=== PATIENT | female | born 2000 | race Caucasian/White ===

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

== ENCOUNTER 2022-11-19 02:55 | Inpatient (IN) ==
[2022-11-19] MEDS ORDERED: OXYTOCIN 30 UNITS/500 ML BAG IV PRN ×3 (03:37→13:28)
[2022-11-19] MEDS ORDERED: LIDOCAINE 1% LOCAL 20 ML VIAL INFIL PRN (03:37)
--- NOTE | 2022-11-19 03:41 | History & Physical Report ---
Date of Service November 19, 2022 Assessment & Plan (1) Supervision of normal first : (2) Group beta Strep positive: Plan 22 yo G1 at 40 2/7 wga admitted in labor VSS Fetus cat 1 Labor - augment PRN GBS+, pcn ordered desires epidural History of Present Illness Chief Complaint: contractions Primary Care Provider: Memo Wills MD 22 yo G1 at 40 2/7 wga presents w/ ctx increasing in freq and intesnity. +FM; denies LOF, VB PNI: BMI > 40 GBS+ Past [employer] Hx: G1 q30d cycles denies hx stis Allergies Allergy/AdvReac Type Severity Reaction Status Date / Time No Known Drug Allergies Allergy Verified 11/10/22 15:16 Home Medications Medication Instructions Recorded Confirmed Type albuterol sulfate 90 mcg/actuation 2 puffs inhalation Q4H PRN 04/29/20 11/19/22 Rx aerosol inhaler (ProAir HFA) shortness of breath or wheezing #18 grams prenat.vits,melissa,ubl-ymfc-dytor 1 tab PO DAILY 04/03/22 11/19/22 History ondansetron HCl 4 mg tablet 4 mg PO Q6H PRN nausea and 10/08/22 11/19/22 Rx vomiting #20 tabs Patient History Medical History Acne Asthma, mild intermittent Dysmenorrhea Varicella vaccination Surgical History No pertinent past surgical history Family History (Updated 04/03/22 @ 13:09 by Celine Ahn) Grandfather (Maternal) Breast cancer Father Hypertension Other No pertinent family history Denies family history of Ovarian cancer Colorectal cancer Social History (Updated 11/19/22 @ 03:33 by Gela Ortiz) Smoking Status: Never smoker Second Hand Exposure: No; Hx Alcohol Use: No Hx Substance Use: No Preferred Language: Bengali Communication Ability: Effective Hearing Ability: Normal Lpn Rn Required: No Beliefs That Will Affect Care: None marital status: marital status details: Noman Rodrigez (22) [phone] Current Living Situation: Spouse Current Living Situation Comment: lives with spouse, cats-spouse changing litter current occupational status: employed current occupation: [employer] Feels Safe at Home: Yes Safety Concerns: Feels Safe At This Time Childhood Exposure to Second-Hand Smoke: No Seatbelt Use: always Sunscreen Use: Yes Do you think of yourself as: straight/heterosexual Gender Identity: Female Physical Exam Genitourinary: Manual OB Exam: + cervical dilation (4-5), + cervical effacement 70% and + station -2 OB Exam Monitor Tracing: + external FHT monitor used, + external uterine monitor used (q5) and + category I (135/mod/+accel/-decel) Results & Data ([facility]) Vital Signs (Past 12 Hours) Vital Signs Temp Pulse Resp BP 11/19/22 03:14 18 11/19/22 03:14 97.7 F 18 11/19/22 03:15 78 125/77 Laboratory Results OB Labs: Blood Type A Negative 04/10/22 Antibody Screen NEGATIVE 09/08/22 Hemoglobin 10.6 g/dl (12.0-16.0) L 09/08/22 Hematocrit 31.3 % (34.1-44.9) L 09/08/22 Mean Corpuscular Volume 88.6 fL (80-100) 04/10/22 Platelet Count 301 K/uL (130-400) 04/10/22 Rubella IgG Antibody Immune (Immune) 04/10/22 Rapid Plasma Reagin Nonreactive (Nonreactive) 04/10/22 Hepatitis B Surface Antigen. NON-REACTIVE (NON-REACTIVE) 04/10/22 Hepatitis C Antibody (EIA) NON-REACTIVE (NON-REACTIVE) 04/10/22 HIV (1&2) Ag and Ab Confirmation NON-REACTIVE (NON-REACTIVE) 04/10/22 Glucose 1 Hour 50 gm Load 116 mg/dl (70-130) 09/08/22 OB Optional Labs: Chlamydia trachomatis RNA NOT DETECTED (NOT DETECTED) 04/20/22 Neisseria gonorrhoeae RNA NOT DETECTED (NOT DETECTED) 04/20/22 Labs Reviewed: cfdna-low risk--mln Declines msafp--mln GBS+ Coding Level of Care Code None Diagnoses Supervision of normal first Z34.00 Group beta Strep positive B95.1
[2022-11-19] MEDS ORDERED: PENICILLIN G POTASSIUM 6 MU in DEXTROSE 5% 250 ML IV STA (03:55)
[2022-11-19] MEDS: LACTATED RINGER'S 1,000 ML IV PRN ×2 (04:03→06:02)
[2022-11-19 04:12] LABS: Hematocrit (blood only) 32.6 % (34.1-44.9); Hemoglobin 11.7 g/dl (12.0-16.0); Mean Corpuscular Hemoglobin 32.8 pg (25.0-34.0); Mean Corpuscular Hgb Conc 35.9 g/dL (32.0-36.0); Mean Corpuscular Volume 91.3 fL (80.0-100.0); Mean Platelet Volume 9.8 fL (9.4-12.3); Platelet Count 203 K/uL (130-400); RDW Coefficient of Variation 12.9 % (11.5-14.5); RDW Standard Deviation 42.4 fL (36.4-46.3); Red Blood Count 3.57 M/uL (3.93-5.22); White Blood Count 16.43 K/ul (4.8-10.8)
[2022-11-19] MEDS ORDERED: ePHEDrine sulfate 50 MG/ML AMP ONE (04:15)
[2022-11-19] MEDS ORDERED: fentaNYL 2MCG/ML ROPIVACAINE 1.25MG/ML 100 ML BAG EPI ONE (04:16)
[2022-11-19] MEDS ORDERED: fentaNYL citrate 100 MCG/2 ML VIAL ONE (04:16)
[2022-11-19] MEDS ORDERED: BUPIVACAINE 0.25% 30 ML VIAL ONE (04:16)
[2022-11-19] MEDS ORDERED: LIDOCAINE 2%/EPINEPHRINE 1:200,000 20 ML SDV ONE (04:16)
[2022-11-19] MEDS ORDERED: SODIUM CHLORIDE 0.9% INJ 10 ML VIAL ONE (04:16)
[2022-11-19] MEDS ORDERED: diphenhydrAMINE 50 MG/ML VIAL IV PRN (04:21)
[2022-11-19] MEDS ORDERED: NALBUPHINE HCL INJ 10 MG/ML AMP IV PRN (04:21)
[2022-11-19] MEDS ORDERED: fentaNYL 2MCG/ML ROPIVACAINE 1.25MG/ML 100 ML BAG EPI PRN (04:21)
[2022-11-19] MEDS ORDERED: ePHEDrine sulfate 50 MG/ML AMP IV PRN (04:21)
[2022-11-19] MEDS ORDERED: ONDANSETRON INJ 2 MG/ML 2 ML VIAL IV PRN (04:21)
[2022-11-19] MEDS ORDERED: NALOXONE HCL 0.4 MG/1 ML VIAL/CARP IV PRN (04:21)
[2022-11-19] MEDS ORDERED: NALOXONE HCL 1 MG in SODIUM CHLORIDE 0.9% 1000ML 1,000 ML IV PRN (04:21)
--- NOTE | 2022-11-19 04:22 | Anesthesiology Consultation ---
Date of Service November 19, 2022 Assessment & Plan (1) Encounter for pre-operative examination: Chart Review Chart Review: Patient NOT seen in Pre Admission Testing and Acceptable Risk for Labor Epidural Consults Requested none History Height/Weight Height: 5 ft 2 in Weight: 97.522 kg Allergies Allergy/AdvReac Type Severity Reaction Status Date / Time No Known Drug Allergies Allergy Verified 11/10/22 15:16 Medications Home Medications Medication Instructions Recorded Confirmed Last Taken albuterol sulfate 90 mcg/actuation 2 puffs inhalation Q4H PRN 04/29/20 11/19/22 Unknown aerosol inhaler (ProAir HFA) shortness of breath or wheezing #18 grams prenat.vits,melissa,wqp-cetv-buqev 1 tab PO DAILY 04/03/22 11/19/22 11/19/22 01:00 ondansetron HCl 4 mg tablet 4 mg PO Q6H PRN nausea and 10/08/22 11/19/22 Unknown vomiting #20 tabs Active Medications Generic Name Dose Route Start Last Admin Trade Name Freq PRN Reason Stop Dose Admin Lactated Ringer's 1,000 mls @ 125 mls/hr 11/19/22 03:37 11/19/22 04:03 Lr IV 11/21/22 03:36 999 mls/hr .Q8H PRN Administration L&D Protocol Protocol Penicillin G Potassium 6 mu/ 262 mls @ 262 mls/hr 11/19/22 03:55 11/19/22 04:13 Dextrose IV 11/19/22 04:54 262 mls/hr NOW STA Administration Past Medical History Medical History Acne Asthma, mild intermittent Dysmenorrhea Varicella vaccination Exercise / Class Metabolic Activity II 4-5 Yardwork/Stairs/Walk up hill Past Family History Family History Grandfather (Maternal) Breast cancer Father Hypertension Other No pertinent family history Denies family history of Ovarian cancer Colorectal cancer Past Surgical History Surgical History No pertinent past surgical history Past Anesthesia History No Hx of Anesthesia Complications and No Family Hx of Anesthesia Complications History of PONV No Hx of PONV and No Hx of Motion Sickness Social History Smoking Status: Never smoker Hx Alcohol Use: No Hx Substance Use: No Physical Exam Vital Signs Last Vital Signs Temp 36.5 C 11/19/22 03:14 Pulse 94 H 11/19/22 04:21 Resp 18 11/19/22 03:14 BP 125/77 11/19/22 03:15 Pulse Ox 100 11/19/22 04:21 Testing Laboratory Results 11/19/22 04:00
[2022-11-19] MEDS: PENICILLIN G POTASSIUM 3 MU in DEXTROSE 5% 100 ML IV PRN ×2 (07:48→11:51)
--- NOTE | 2022-11-19 08:34 | Labor Progress Brief Note ---
Date of Service November 19, 2022 Subjective comfortable w/ epidural Assessment & Plan (1) Supervision of normal first : (2) Group beta Strep positive: Plan 22 yo G1 at 40 2/7 wga admitted in labor VSS Fetus cat 1 Labor - augment PRN, good progress noted GBS+, pcn ordered epidural in place Admission and Anticipated Discharge Date Admission Date: November 19, 2022 Physical Exam Genitourinary: Manual OB Exam: + cervical dilation 8 cm, + cervical effacement 90%, + station 0 and + amniotic fluid (had srom of fluid earlier, arom of forebag performed with mec noted) OB Exam Monitor Tracing: + external FHT monitor used, + external uterine monitor used (q5) and + category I (130/mod/+accel/-decel) Results & Data ([facility]) Vital Signs (Past 12 Hours) Vital Signs Temp Pulse Resp BP Pulse Ox 11/19/22 07:05 98.4 F 16 11/19/22 08:26 77 100 11/19/22 08:21 75 99 11/19/22 08:18 77 108/67 11/19/22 08:16 76 100 11/19/22 08:11 70 99 11/19/22 08:06 71 98 11/19/22 08:00 18 11/19/22 08:00 18 11/19/22 07:30 16 11/19/22 07:30 16 11/19/22 08:01 71 107/60 99 11/19/22 07:56 77 99 11/19/22 07:51 74 99 11/19/22 07:46 99 11/19/22 07:46 78 11/19/22 07:46 75 111/63 11/19/22 07:41 81 97 11/19/22 07:36 69 99 11/19/22 07:32 78 110/59 L 11/19/22 07:31 72 100 11/19/22 07:26 83 100 11/19/22 07:05 16 11/19/22 07:05 98.4 F 16 11/19/22 07:21 81 100 11/19/22 07:16 100 11/19/22 07:16 83 11/19/22 07:16 88 110/68 11/19/22 07:11 89 100 11/19/22 07:06 73 99 11/19/22 07:01 68 127/68 100 11/19/22 07:00 18 11/19/22 07:00 18 11/19/22 06:56 66 99 11/19/22 06:51 80 100 11/19/22 06:46 99 11/19/22 06:46 73 11/19/22 06:46 68 124/67 11/19/22 06:41 74 99 11/19/22 06:30 18 11/19/22 06:30 18 11/19/22 06:36 82 100 11/19/22 06:31 73 118/68 99 11/19/22 06:26 74 99 11/19/22 06:00 18 11/19/22 06:00 18 11/19/22 06:21 70 100 11/19/22 06:16 76 122/73 99 11/19/22 06:11 78 100 11/19/22 06:09 98 H 93 11/19/22 06:06 74 100 11/19/22 06:01 83 119/73 99 11/19/22 05:56 77 100 11/19/22 05:51 73 100 11/19/22 05:46 83 121/70 99 11/19/22 05:41 86 99 11/19/22 05:36 88 100 11/19/22 05:31 85 119/67 100 11/19/22 05:30 105 H 18 93 11/19/22 05:27 98.2 F 11/19/22 05:26 91 H 100 11/19/22 05:21 100 H 100 11/19/22 05:16 75 100 11/19/22 05:14 82 117/67 11/19/22 05:11 84 100 11/19/22 05:10 86 123/66 11/19/22 05:06 88 100 11/19/22 05:00 18 11/19/22 05:00 18 11/19/22 05:01 99 H 99 11/19/22 04:59 85 116/57 L 11/19/22 04:56 94 H 100 11/19/22 04:54 90 119/58 L 11/19/22 04:51 88 100 11/19/22 04:40 20 11/19/22 04:40 20 11/19/22 04:49 89 115/56 L 11/19/22 04:47 95 H 118/56 L 11/19/22 04:46 83 99 11/19/22 04:45 85 126/60 11/19/22 04:44 96 H 155/67 H 11/19/22 04:41 89 108/67 99 11/19/22 04:39 90 109/55 L 11/19/22 04:36 85 100 11/19/22 04:37 91 H 117/61 11/19/22 04:35 80 122/66 11/19/22 04:31 85 100 11/19/22 04:30 91 H 80 L 11/19/22 04:26 100 H 98 11/19/22 04:21 94 H 100 11/19/22 04:16 83 99 11/19/22 04:11 85 100 11/19/22 04:06 77 100 11/19/22 03:14 18 11/19/22 03:14 97.7 F 18 11/19/22 03:15 78 125/77 Coding Level of Care Code None Diagnoses Supervision of normal first Z34.00 Group beta Strep positive B95.1
[2022-11-19] MEDS ORDERED: ACETAMINOPHEN 325 MG TAB PO PRN (09:11)
[2022-11-19] MEDS ORDERED: DIPHTHERIA/TETANUS/PERTUSSIS 0.5mL SYR/VIAL (Age 7+yrs) IM ONE (13:28)
[2022-11-19] MEDS ORDERED: HYDROCORTISONE ACETATE 25 MG SUPP PR PRN (13:28)
[2022-11-19] MEDS ORDERED: bisacodyL 10 MG SUPP PR PRN (13:28)
[2022-11-19] MEDS: IBUPROFEN 600 MG TAB PO PRN ×2 (14:00→18:34)
--- NOTE | 2022-11-19 14:28 | Delivery Summary ---
Vaginal Delivery Summary Date of Service November 19, 2022 Vaginal Delivery Summary and 1st Degree LAC Patient is a 22-year-old female EDC of 11/17/2022 who presented at 40-2/7 weeks in active labor. Membranes were ruptured for thin meconium stained fluid. She received effective epidural analgesia. She progressed to full dilation with the urge to push. She pushed effectively over intact perineum for delivery of a viable female . After the head was delivered the rest the infant was delivered easily. She was placed on the mother's abdomen for further attention and drying. She was crying and moving all 4 limbs although not vigorously. After the cord was clamped and cut at approximately 45 seconds, she was taken to the baby bed for further evaluation. After cord blood was obtained, the placenta was expressed intact with a three-vessel cord. bleeding was controlled with dilute Pitocin and fundal massage. A first-degree perineal and right labial lacerations were repaired with 3-0 chromic in the usual fashion. Estimated blood loss was 200 cc. Mother and were doing well after delivery. [facility] [place]ag[place] Delivery Charge Delivery Type Details: and 1st Degree LAC
--- NOTE | 2022-11-19 15:30 | Anesthesiology Progress Note ---
Date of Service November 19, 2022 Anesthesia Post Procedure Vital Signs Vital Signs: Temp Pulse Resp BP Pulse Ox 11/19/22 15:26 16 11/19/22 14:55 16 11/19/22 14:25 18 11/19/22 14:10 18 11/19/22 13:55 18 11/19/22 13:40 16 11/19/22 13:25 18 11/19/22 07:05 36.9 C 16 11/19/22 15:27 93 H 135/67 11/19/22 14:57 97 H 114/63 11/19/22 14:27 85 144/71 H 11/19/22 14:11 85 119/56 L 11/19/22 13:56 74 135/77 11/19/22 13:41 75 128/66 11/19/22 13:29 76 120/64 11/19/22 13:26 107 H 99 11/19/22 13:21 96 H 99 11/19/22 13:16 89 99 11/19/22 13:11 94 H 99 11/19/22 13:06 88 99 11/19/22 13:02 108 H 90 11/19/22 13:01 81 124/73 100 11/19/22 13:00 20 11/19/22 13:00 37.1 C 20 11/19/22 12:56 102 H 99 11/19/22 12:30 20 11/19/22 12:30 20 11/19/22 12:51 86 98 11/19/22 12:48 78 115/70 11/19/22 12:46 81 100 11/19/22 12:41 79 99 11/19/22 12:36 82 100 11/19/22 12:31 100 11/19/22 12:31 71 11/19/22 12:31 77 113/68 11/19/22 12:26 73 100 11/19/22 12:21 87 98 11/19/22 12:16 75 112/64 100 11/19/22 12:11 85 100 11/19/22 12:06 74 100 11/19/22 11:30 18 11/19/22 11:30 18 11/19/22 12:01 100 11/19/22 12:01 75 11/19/22 12:01 68 112/60 11/19/22 11:56 71 99 11/19/22 11:51 74 100 11/19/22 11:46 82 115/70 99 11/19/22 11:41 79 99 11/19/22 11:36 73 100 11/19/22 11:31 70 100 11/19/22 11:32 71 126/76 11/19/22 11:26 75 99 11/19/22 11:21 83 98 11/19/22 11:16 70 119/68 100 11/19/22 11:11 75 100 11/19/22 11:00 18 11/19/22 11:00 36.9 C 18 11/19/22 11:06 74 100 11/19/22 11:01 100 11/19/22 11:01 73 11/19/22 11:01 77 116/65 11/19/22 10:56 75 100 11/19/22 10:51 71 100 11/19/22 10:46 68 100 11/19/22 10:47 67 125/71 11/19/22 10:30 18 11/19/22 10:30 18 11/19/22 10:41 69 100 11/19/22 10:36 70 100 11/19/22 10:31 72 99 11/19/22 10:32 71 124/67 11/19/22 10:30 16 11/19/22 10:30 16 11/19/22 10:26 73 100 11/19/22 10:21 81 100 11/19/22 10:16 86 132/79 100 11/19/22 10:11 77 99 11/19/22 10:00 16 11/19/22 10:00 16 11/19/22 10:06 73 100 11/19/22 10:01 80 100 11/19/22 10:02 71 124/65 11/19/22 09:56 88 98 11/19/22 09:51 70 100 11/19/22 09:46 73 126/70 100 11/19/22 09:30 16 11/19/22 09:30 16 11/19/22 09:41 75 100 11/19/22 09:30 20 11/19/22 09:30 20 11/19/22 09:36 81 100 11/19/22 09:32 76 124/68 11/19/22 09:31 75 100 11/19/22 09:26 106 H 99 11/19/22 09:21 96 H 100 11/19/22 09:16 82 132/74 100 11/19/22 09:11 93 H 99 11/19/22 09:06 120 H 99 11/19/22 09:00 18 11/19/22 09:00 36.9 C 18 11/19/22 09:01 82 125/70 100 11/19/22 08:56 74 100 11/19/22 08:51 82 100 11/19/22 08:30 18 11/19/22 08:30 18 11/19/22 08:46 79 100 11/19/22 08:47 77 120/71 11/19/22 08:41 77 99 11/19/22 08:36 77 99 11/19/22 08:31 86 112/73 100 11/19/22 08:26 77 100 11/19/22 08:21 75 99 11/19/22 08:18 77 108/67 11/19/22 08:16 76 100 11/19/22 08:11 70 99 11/19/22 08:06 71 98 11/19/22 08:00 18 11/19/22 08:00 18 11/19/22 07:30 16 11/19/22 07:30 16 11/19/22 08:01 71 107/60 99 11/19/22 07:56 77 99 11/19/22 07:51 74 99 11/19/22 07:46 99 11/19/22 07:46 78 11/19/22 07:46 75 111/63 11/19/22 07:41 81 97 11/19/22 07:36 69 99 11/19/22 07:32 78 110/59 L 11/19/22 07:31 72 100 11/19/22 07:26 83 100 11/19/22 07:05 16 11/19/22 07:05 36.9 C 16 11/19/22 07:21 81 100 11/19/22 07:16 100 11/19/22 07:16 83 11/19/22 07:16 88 110/68 11/19/22 07:11 89 100 11/19/22 07:06 73 99 11/19/22 07:01 68 127/68 100 11/19/22 07:00 18 11/19/22 07:00 18 11/19/22 06:56 66 99 11/19/22 06:51 80 100 11/19/22 06:46 99 11/19/22 06:46 73 11/19/22 06:46 68 124/67 11/19/22 06:41 74 99 11/19/22 06:30 18 11/19/22 06:30 18 11/19/22 06:36 82 100 11/19/22 06:31 73 118/68 99 11/19/22 06:26 74 99 11/19/22 06:00 18 11/19/22 06:00 18 11/19/22 06:21 70 100 11/19/22 06:16 76 122/73 99 11/19/22 06:11 78 100 11/19/22 06:09 98 H 93 11/19/22 06:06 74 100 11/19/22 06:01 83 119/73 99 11/19/22 05:56 77 100 11/19/22 05:51 73 100 11/19/22 05:46 83 121/70 99 11/19/22 05:41 86 99 11/19/22 05:36 88 100 11/19/22 05:31 85 119/67 100 11/19/22 05:30 105 H 18 93 11/19/22 05:27 36.8 C 11/19/22 05:26 91 H 100 11/19/22 05:21 100 H 100 11/19/22 05:16 75 100 11/19/22 05:14 82 117/67 11/19/22 05:11 84 100 11/19/22 05:10 86 123/66 11/19/22 05:06 88 100 11/19/22 05:00 18 11/19/22 05:00 18 11/19/22 05:01 99 H 99 11/19/22 04:59 85 116/57 L 11/19/22 04:56 94 H 100 11/19/22 04:54 90 119/58 L 11/19/22 04:51 88 100 11/19/22 04:40 20 11/19/22 04:40 20 11/19/22 04:49 89 115/56 L 11/19/22 04:47 95 H 118/56 L 11/19/22 04:46 83 99 11/19/22 04:45 85 126/60 11/19/22 04:44 96 H 155/67 H 11/19/22 04:41 89 108/67 99 11/19/22 04:39 90 109/55 L 11/19/22 04:36 85 100 11/19/22 04:37 91 H 117/61 11/19/22 04:35 80 122/66 11/19/22 04:31 85 100 11/19/22 04:30 91 H 80 L 11/19/22 04:26 100 H 98 11/19/22 04:21 94 H 100 11/19/22 04:16 83 99 11/19/22 04:11 85 100 11/19/22 04:06 77 100 11/19/22 03:14 18 11/19/22 03:14 36.5 C 18 11/19/22 03:15 78 125/77 Pain Intensity Bilateral Abdomen: Pain Intensity: 0 Head: Pain Intensity: 6 Transfer of Care Handoff Completed per policy Notes Mental Status: alert / awake / arousable and participated in evaluation Patient Amnestic to Procedure: Yes Nausea / Vomiting: adequately controlled Pain: adequately controlled Airway Patency, RR, SpO2: stable & adequate BP & HR: stable & adequate Hydration State: stable & adequate Anesthetic Complications: no major complications apparent and Pt Satisfied with anesthetic care
[2022-11-19] MEDS: ACETAMINOPHEN 325 MG TAB PO PRN ×2 (16:29→22:37)
[2022-11-19] MEDS: BENZOCAINE 20% AER SPR 82.5 GM CAN EXT PRN (16:29)
[2022-11-19] MEDS: DOCUSATE SODIUM 100 MG CAP PO SCH (20:48)
[2022-11-20] MEDS: IBUPROFEN 600 MG TAB PO PRN ×4 (03:26→21:44)
[2022-11-20 06:42] LABS: Hematocrit (blood only) 28.4 % (34.1-44.9); Hemoglobin 9.7 g/dl (12.0-16.0); Mean Corpuscular Hemoglobin 32.6 pg (25.0-34.0); Mean Corpuscular Hgb Conc 34.2 g/dL (32.0-36.0); Mean Corpuscular Volume 95.3 fL (80.0-100.0); Mean Platelet Volume 10.2 fL (9.4-12.3); Platelet Count 178 K/uL (130-400); RDW Coefficient of Variation 13.3 % (11.5-14.5); Red Blood Count 2.98 M/uL (3.93-5.22); White Blood Count 11.93 K/ul (4.8-10.8)
--- NOTE | 2022-11-20 07:07 | Obstetrical Progress Note ---
Date of Service <Opal Yu MD - Last Filed: 11/20/22 08:35> November 20, 2022 Assessment & Plan <Opal Yu MD - Last Filed: 11/20/22 08:35> (1) care following vaginal delivery: 22 y/o at 40 2/7 wga admitted in labor now PPD1 - Rh neg, RI. Tolerating PO. Encourage ambulation. Satisfactory post progress. GBS pos treated during labor. MS3, Dottie Tipton contributed to the history and physical of this note. <Maribel Cross MD, FACOG - Last Filed: 11/20/22 09:08> (1) care following vaginal delivery: Subjective <Opal Yu MD - Last Filed: 11/20/22 08:35> Ambulation: ambulating normally Voiding: no voiding problems Passing Gas:: Yes Diet Tolerance:: regular diet Lochia:: Small Feeding Type:: breast feeding Review of Systems is having some shakiness with ambulating 2/2 perineal pain. otherwise doing well Physical Exam <Opal Yu MD - Last Filed: 11/20/22 08:35> Constitutional WD/WN, vitals as above Respiratory normal respiratory effort, lungs clear to auscultation Cardiovascular RRR, no murmur, no edema Extremities: no calf tenderness Psychiatric A+Ox3, euthymic affect Genitourinary OB Exam Abdomen: + fundal height (@ the level of the umbilicus) Fundus: + firm Results & Data ([facility]) <Opal Yu MD - Last Filed: 11/20/22 08:35> Vital Signs (Past 12 Hours) Vital Signs Temp Pulse Resp BP Pulse Ox O2 Del Method 11/20/22 03:06 36.8 C 74 18 113/71 100 Room Air 11/19/22 22:54 36.9 C 82 18 100/65 98 Room Air 11/19/22 19:19 36.9 C 88 18 111/74 99 Room Air <Maribel Cross MD, FACOG - Last Filed: 11/20/22 09:08> Co-Signing Physician Notes Resident Physician Supervision Note: I interviewed and examined the patient. Discussed with Dr. Yu and agree with findings and plan as documented in the note. Any exceptions or clarifications are listed here: will continue additional iron supplement for the next 4-6 weeks along with PNV. Documented By: Maribel Cross MD, FACOG Resident Activity Tracking <Opal Yu MD - Last Filed: 11/20/22 08:35> Resident Involvement: Resident Care Provided Care Provided: OB Delivery
[2022-11-20] MEDS: PRENATAL VITAMIN 1 TAB PO SCH (07:29)
[2022-11-20] MEDS: ACETAMINOPHEN 325 MG TAB PO PRN ×3 (07:29→19:40)
[2022-11-20] MEDS: DOCUSATE SODIUM 100 MG CAP PO SCH ×2 (07:29→19:41)
[2022-11-20] MEDS: BENZOCAINE 20% AER SPR 82.5 GM CAN EXT PRN (13:08)
[2022-11-20] MEDS ORDERED: bisacodyL 5 MG TABEC PO SCH (20:00)
[2022-11-21] MEDS: IBUPROFEN 600 MG TAB PO PRN ×3 (02:07→12:23)
[2022-11-21] MEDS: ACETAMINOPHEN 325 MG TAB PO PRN ×2 (05:33→11:27)
[2022-11-21 06:23] LABS: Hematocrit (blood only) 27.5 % (34.1-44.9); Hemoglobin 9.5 g/dl (12.0-16.0)
--- NOTE | 2022-11-21 06:56 | Obstetrical Progress Note ---
Date of Service <Opal Yu MD - Last Filed: 11/21/22 06:56> November 21, 2022 Assessment & Plan <Opal Yu MD - Last Filed: 11/21/22 06:56> (1) care following vaginal delivery: 22 y/o at 40 2/7 wga admitted in labor now PPD2 - Rh neg, RI. Tolerating PO. Encourage ambulation. Satisfactory post progress. GBS pos treated during labor. <Rosanne Jara MD, FACOG - Last Filed: 11/21/22 07:33> (1) care following vaginal delivery: Subjective <Opal Yu MD - Last Filed: 11/21/22 06:56> Ambulation: ambulating normally Voiding: no voiding problems Passing Gas:: Yes Diet Tolerance:: regular diet Lochia:: Small Feeding Type:: breast feeding Physical Exam <Opal Yu MD - Last Filed: 11/21/22 06:56> Constitutional WD/WN, vitals as above Respiratory no increased work of breathing Cardiovascular Extremities: no calf tenderness clinically well perfused Psychiatric A+Ox3, euthymic affect Genitourinary OB Exam Abdomen: + fundal height (@ the level of the umbilicus) Fundus: + firm Results & Data ([facility]) <Opal Yu MD - Last Filed: 11/21/22 06:56> Vital Signs (Past 12 Hours) Vital Signs Temp Pulse Resp BP Pulse Ox O2 Del Method 11/21/22 00:30 36.8 C 80 16 117/75 Room Air 11/20/22 20:00 36.9 C 89 16 121/83 98 Room Air <Rosanne Jara MD, FACOG - Last Filed: 11/21/22 07:33> Co-Signing Physician Notes Resident Physician Supervision Note: I interviewed and examined the patient. Discussed with Dr. Yu and agree with findings and plan as documented in the note. Any exceptions or clarifications are listed here: Doing well. Plan d/c. Instructions given. f/u 6 weeks/prn. Documented By: Rosanne Jara MD, FACOG Resident Activity Tracking <Opal Yu MD - Last Filed: 11/21/22 06:56> Resident Involvement: Resident Care Provided Care Provided: OB Delivery
[2022-11-21] MEDS: DOCUSATE SODIUM 100 MG CAP PO SCH (08:14)
[2022-11-21] MEDS: PRENATAL VITAMIN 1 TAB PO SCH (08:15)
== END 2022-11-21 13:08 | disposition home or self-care (01) | DRG 807 ==
LOC: OPB 02:55 → 4S1 02:58 → 4E2 16:16

== ENCOUNTER 2025-08-17 22:50 | Inpatient (IN) ==
[2025-08-18] MEDS ORDERED: OXYTOCIN 30 UNITS/NSS 30 UNITS/500 ML BAG IV PRN (00:43)
[2025-08-18] MEDS ORDERED: CALCIUM CARBONATE 500 MG CHEWABLE TAB PO PRN (00:43)
[2025-08-18] MEDS ORDERED: LIDOCAINE 1% LOCAL 20 ML VIAL INFIL PRN (00:43)
[2025-08-18] MEDS: LACTATED RINGER'S 1,000 ML IV PRN (01:19)
[2025-08-18] MEDS: PENICILLIN GK 6 MU in DEXTROSE 5% 250 ML IV STA (01:21)
[2025-08-18 01:44] LABS: Hematocrit (blood only) 29.6 % (37.0-47.0); Hemoglobin 10.3 g/dl (12.0-16.0); Mean Corpuscular Hemoglobin 31.5 pg (25.0-34.0); Mean Corpuscular Volume 90.5 fL (80.0-100.0); Platelet Count 213 K/uL (130-400); RDW Standard Deviation 42.7 fL (36.4-46.3); Red Blood Count 3.27 M/uL (4.20-5.40); White Blood Count 12.38 K/ul (4.8-10.8)
[2025-08-18] MEDS ORDERED: NALOXONE HCL 1 MG in SODIUM CHLORIDE 0.9% 1,000 ML IV PRN (01:51)
[2025-08-18] MEDS ORDERED: LIDOCAINE 2% MPF LOCAL 5 ML VIAL EPI PRN (01:51)
[2025-08-18] MEDS ORDERED: NALOXONE HCL 0.4 MG/1 ML VIAL/CARP IV PRN (01:51)
[2025-08-18] MEDS ORDERED: BUPIVACAINE 0.25% PF 30 ML VIAL EPI PRN (01:51)
[2025-08-18] MEDS ORDERED: ROPIVACAINE 0.5% PF 5 MG/ML 20 ML VIAL EPI PRN (01:51)
[2025-08-18] MEDS ORDERED: NALBUPHINE HCL INJ 10 MG/ML AMP IV PRN (01:51)
[2025-08-18] MEDS ORDERED: diphenhydrAMINE 50 MG/ML VIAL IV PRN (01:51)
[2025-08-18] MEDS ORDERED: fentANYL 2 MCG/ML BUPIVacaine 0.125%-NSS 100ML BAG EPI PRN (01:51)
[2025-08-18] MEDS ORDERED: ONDANSETRON INJ 2 MG/ML 2 ML VIAL IV PRN (01:51)
[2025-08-18] MEDS ORDERED: SODIUM CHLORIDE 0.9% PF INJ 10 ML VIAL EPI PRN (01:51)
--- NOTE | 2025-08-18 01:54 | Anesthesiology Consultation ---
Date of Service August 18, 2025 Assessment & Plan (1) Encounter for pre-operative examination: Chart Review Chart Review: Patient NOT seen in Pre Admission Testing and Acceptable Risk for Labor Epidural Consults Requested none History Height/Weight Height: 5 ft 1 in Weight: 98.883 kg Allergies Allergy/AdvReac Type Severity Reaction Status Date / Time No Known Drug Allergies Allergy Verified 08/13/25 14:15 Medications Home Medications Medication Instructions Recorded Confirmed Last Taken prenat.vits,melissa,xot-sdjn-mbseg tab PO 01/16/25 08/13/25 08/16/25 21:00 ondansetron HCl 4 mg tablet 4 mg PO Q8H PRN nausea and 01/18/25 08/13/25 Unknown vomiting #20 tabs albuterol sulfate 90 mcg/actuation 2 puff inhalation Q4H PRN 03/27/25 08/13/25 Unknown aerosol inhaler shortness of breath or wheezing #18 grams Active Medications Generic Name Dose Route Start Last Admin Trade Name Freq PRN Reason Stop Dose Admin Lactated Ringer's 1,000 mls @ 125 mls/hr 08/18/25 00:43 08/18/25 01:19 Lr IV 08/20/25 00:42 999 mls/hr .Q8H PRN Administration L&D Protocol Protocol Past Medical History Medical History Varicella vaccination Exercise / Class Metabolic Activity II 4-5 Yardwork/Stairs/Walk up hill Past Family History Family History Grandfather (Maternal) Breast cancer Father Hypertension Other No pertinent family history Denies family history of Ovarian cancer Colorectal cancer Past Surgical History Surgical History No pertinent past surgical history Past Anesthesia History No Hx of Anesthesia Complications and No Family Hx of Anesthesia Complications Social History Smoking Status: Never smoker Do You Dip or Chew Tobacco: No Hx Alcohol Use: No Hx Substance Use: No Physical Exam Vital Signs Last Vital Signs Temp 36.5 C 08/17/25 23:13 Pulse 107 H 08/18/25 02:14 Resp 16 08/17/25 23:13 BP 121/65 08/18/25 02:14 Pulse Ox 88 L 08/18/25 02:13 Testing Laboratory Results 08/18/25 01:12
[2025-08-18] MEDS: BUPIVACAINE 0.25% PF 30 ML VIAL ONE (02:18)
[2025-08-18] MEDS: LIDOCAINE 2%/EPINEPHRINE 1:200,000 20 ML PF ONE (02:18)
[2025-08-18] MEDS: fentANYL 2 MCG/ML BUPIVacaine 0.125%-NSS 100ML BAG ONE (02:19)
[2025-08-18] MEDS: SODIUM CHLORIDE 0.9% PF INJ 10 ML VIAL ONE (02:21)
[2025-08-18] MEDS: ACETAMINOPHEN 325 MG TAB PO PRN ×2 (02:31→09:17)
[2025-08-18] MEDS: BUPIVACAINE 0.25% PF 30 ML VIAL EPI STA (02:32)
[2025-08-18] MEDS: LIDOCAINE 2%/EPINEPHRINE 1:200,000 20 ML PF EPI STA (02:32)
[2025-08-18] MEDS: SODIUM CHLORIDE 0.9% PF INJ 10 ML VIAL EPI STA (02:33)
[2025-08-18] MEDS ORDERED: SODIUM CHLORIDE 0.9% 100 ML IV PRN (02:37)
[2025-08-18] MEDS: PENICILLIN GK 3 MU in DEXTROSE 5% 100 ML IV PRN (05:03)
[2025-08-18] MEDS: OXYTOCIN 30 UNITS/NSS 30 UNITS/500 ML BAG IV PRN (07:20)
--- NOTE | 2025-08-18 07:24 | Delivery Summary ---
Vaginal Delivery Summary Date of Service August 18, 2025 Vaginal Delivery Summary and 1st Degree LAC Spontaneous vaginal delivery the patient arrived in active labor GBS positive antibiotics were initiated she requested epidural she then progressed to fully dilated and over 2 contractions delivered a baby in occiput anterior position there was thin meconium after delivery of the head gentle traction on the baby no excessive force bulb suction used as well easy delivery no excessive force live vigorous male infant Cord clamped and cut cord blood obtained placenta removed with traction small first-degree tear repaired with a simple interrupted 3-0 Vicryl sponge and instrument counts QBL per nursing [facility] Vaginal Delivery Charge Delivery Type Details: and 1st Degree LAC
[2025-08-18] MEDS ORDERED: DIPHTHER/TETAN/PERTUS Vaccine (Tdap, Adol/Adult) 0.5mL IM ONE (07:32)
[2025-08-18] MEDS ORDERED: HYDROCORTISONE ACETATE 25 MG SUPP PR PRN (07:32)
[2025-08-18] MEDS: IBUPROFEN 600 MG TAB PO PRN (08:13)
[2025-08-18] MEDS: BENZOCAINE 20% SPRY 85 APPLN/85 GM CAN EXT PRN (08:13)
[2025-08-18] MEDS: PRENATAL VITAMIN 1 TAB PO SCH (08:18)
[2025-08-18] MEDS: DOCUSATE SODIUM 100 MG CAP PO SCH (08:18)
--- NOTE | 2025-08-18 09:04 | Anesthesia Procedure Note ---
Date of Service August 18, 2025 Anesthesia Post Epidural Note Vital Signs Vital Signs: Temp Pulse Resp BP Pulse Ox 36.7 C 90 20 137/64 99 08/18/25 06:58 08/18/25 09:00 08/18/25 08:30 08/18/25 09:00 08/18/25 07:22 Pain Intensity Abdomen: Pain Intensity: 1 Bilateral Head: Pain Intensity: 3 Notes Mental Status: alert / awake / arousable and participated in evaluation Nausea / Vomiting: adequately controlled Pain: adequately controlled Airway Patency, RR, SpO2: stable & adequate BP & HR: stable & adequate Hydration State: stable & adequate Neuraxial Anesthesia: was administered and sensory block resolved Anesthetic Complications: no major complications apparent and Pt Satisfied with anesthetic care Epidural: Removed without complications and With tip intact
[2025-08-19 03:36] VITALS: O2SAT 99
[2025-08-19 06:38] LABS: Hematocrit (blood only) 26.8 % (37.0-47.0); Hemoglobin 9.2 g/dl (12.0-16.0); Mean Corpuscular Hemoglobin 32.5 pg (25.0-34.0); Mean Corpuscular Volume 94.7 fL (80.0-100.0); Platelet Count 166 K/uL (130-400); RDW Standard Deviation 46.4 fL (36.4-46.3); Red Blood Count 2.83 M/uL (4.20-5.40); White Blood Count 9.24 K/ul (4.8-10.8)
--- NOTE | 2025-08-19 08:17 | Obstetrical Progress Note ---
Date of Service August 19, 2025 Assessment & Plan (1) care and examination: stable, routine care. ready for dc home. instructions reviewed. f/u 6 wk pp check. , rh neg, baby rh neg. ri. Day #:: 1 Subjective Ambulation: ambulating normally Voiding: no voiding problems Diet Tolerance:: regular diet Lochia:: Small Feeding Type:: breast feeding no concerns, ready to go home. Constitutional: + as per Subjective / HPI Physical Exam Constitutional WD/WN, vitals as above Respiratory normal respiratory effort, lungs clear to auscultation Cardiovascular Rate/Rhythm: regular rate and regular rhythm Gastrointestinal (Abdomen) Inspection/Auscultation: abdomen normal to inspection Percussion/Palpation: abdomen soft Fundus firm 2cm down Musculoskeletal nt calves no edema Neurologic grossly normal Psychiatric A+Ox3, euthymic affect Results & Data Vital Signs (Past 12 Hours) Vital Signs Temp Pulse Resp BP Pulse Ox O2 Del Method 08/19/25 03:30 97.7 F 73 20 107/70 99 Room Air 08/18/25 22:53 98.1 F 75 18 123/80 98 Room Air
[2025-08-19 08:46] VITALS: BP 117/79; PULSE 75; RESP 18; TEMP 97.3
--- NOTE | 2025-08-20 17:57 | Coding Query ---
CODING QUERY To promote full compliance with coding requirements relating to patient care, provider participation is requested in all cases of general road supervisor uncertainty. Please assist us with the question(s) below: Coding Question(s): Weeks of Gestation were not mentioned on reports. Please specify Weeks of Gestation Below. 39 Physician's Response(s): Thank you Sherri Walter Principal Diagnosis: "that condition established after study, to be chiefly responsible for occasioning the admission of the patient to the hospital for care." Co-Existing Principal Diagnosis: "when two or more diagnoses equally meet the criteria for principal diagnosis as determined by the circumstances of admission, diagnostic work up, and/or therapy provided, and the Alphabetic Index, Tabular List, or another coding guideline does not provide sequencing direction, any one of the diagnoses may be sequenced first." "When the physician has documented what appears to be a current diagnosis in the body of the record, but has not included the diagnosis in the final diagnostic statement, the physician should be asked whether the diagnosis should be added." (Source [facility] 2 QTR90. p3-4) CORI
== END 2025-08-19 13:10 | disposition home or self-care (01) | DRG 807 ==
LOC: OPB 22:50 → 4S1 22:56 → 4E2 08-18 10:22